=== PATIENT | male | born 1955 | race African-American/Black ===

== ENCOUNTER 2017-12-16 09:09 | Emergency (ER) | payer MEDICARE, OTHER ==
[~2017-12-16] VITALS: Ht 175.3 cm; Wt 95.0 kg
[~2017-12-16 09:09] MED LIST: METH10TA2 PO; METH40TA12 PO; PHEN30TA42
[2017-12-16] MEDS ORDERED: IBUPROFEN 800MG TABLET PO ONE (10:15)
[2017-12-16 11:15] VITALS: BP 130/84
== END 2017-12-16 11:26 | disposition home or self-care (01) ==
LOC: ER 09:42
DX: S20.212A Contusion of left front wall of thorax, initial encounter (principal); K21.9 Gastro-esophageal reflux disease without esophagitis; F17.200 Nicotine dependence, unspecified, uncomplicated; W20.8XXA Other cause of strike by thrown, projected or falling object, initial encounter; Y93.89 Activity, other specified; Y92.89 Other specified places as the place of occurrence of the external cause; Y99.8 Other external cause status
CPT/HCPCS: 71100; 93005; 99284

== ENCOUNTER 2018-02-05 13:30 | Emergency (ER) | payer MEDICARE, OTHER ==
[~2018-02-05] VITALS: Ht 175.3 cm; Wt 92.0 kg
[2018-02-05] MEDS ORDERED: KETOROLAC 60MG/2ML VIAL IM ONE (17:45)
[2018-02-05 19:40] VITALS: BP 111/62
== END 2018-02-05 19:43 | disposition home or self-care (01) ==
LOC: ER 15:38
DX: M79.661 Pain in right lower leg (principal); K21.9 Gastro-esophageal reflux disease without esophagitis; G40.909 Epilepsy, unspecified, not intractable, without status epilepticus; F17.200 Nicotine dependence, unspecified, uncomplicated; Z85.79 Personal history of other malignant neoplasms of lymphoid, hematopoietic and related tissues
CPT/HCPCS: 73590; 93971; 96372; 99284; J1885

== ENCOUNTER 2018-04-23 08:20 | Day surgery (SDC) | payer MEDICARE, OTHER ==
[~2018-04-23] VITALS: Ht 175.3 cm; Wt 92.5 kg
[~2018-04-23 08:20] MED LIST changes: +FERR325T6 MT; +GABA-529 MT; +GABA-531 MT; +IBUP-2029 MT; +LEVE500T19 MT; -METH10TA2 PO; -METH40TA12 PO; +PANT20TA3 MT; -PHEN30TA42
[2018-04-23] MEDS ORDERED: SODIUM CHLORIDE 0.9% 1,000 ML IV SCH (09:20)
[2018-04-23 09:31] LABS: MEAN CORPUSCULAR HEMOGLOBIN 31.1 pg (28.0-32.0); MEAN PLATELET VOLUME 6.4 fl (7.4-10.4); PLATELET 88 x1000/uL (130-400); RED BLOOD CELL COUNT 2.26 mill/uL (4.7-6.1); RED CELL DISTRIBUTION WIDTH 18.9 % (11.6-14.6)
[2018-04-23 09:35] LABS: HEMATOCRIT. 20.3 % (42.0-52.0)
[2018-04-23] MEDS ORDERED: FENTANYL CITRATE/PF 50MCG/ML 2ML VIAL ONE (09:43)
[2018-04-23] MEDS ORDERED: ONDANSETRON HCL 4MG/2ML VIAL ONE (09:45)
[2018-04-23] MEDS ORDERED: ONDANSETRON HCL 4MG/2ML VIAL IV ONE (10:30)
[2018-04-23 10:38] LABS: PLATELET ESTIMATE SLIGHTLY DECREASED
[2018-04-23] MEDS ORDERED: PROT40 PO (11:20)
[2018-04-23] MEDS ORDERED: MULT1TAB76 PO (11:20)
[2018-04-23] MEDS ORDERED: CYAN10003 PO (11:20)
== END 2018-04-23 12:30 | disposition home or self-care (01) ==
LOC: OR 08:20
PROVIDERS: ATTEND Pathology Anatomic Pathology & Clinical Pathology
DX: C90.00 Multiple myeloma not having achieved remission (principal); J44.9 Chronic obstructive pulmonary disease, unspecified; N18.2 Chronic kidney disease, stage 2 (mild); D50.9 Iron deficiency anemia, unspecified; R06.02 Shortness of breath; I51.7 Cardiomegaly; F17.210 Nicotine dependence, cigarettes, uncomplicated; M51.26 Other intervertebral disc displacement, lumbar region; G89.29 Other chronic pain; B19.20 Unspecified viral hepatitis C without hepatic coma; K21.9 Gastro-esophageal reflux disease without esophagitis; Z79.1 Long term (current) use of non-steroidal anti-inflammatories (NSAID); Z79.899 Other long term (current) drug therapy; Z86.19 Personal history of other infectious and parasitic diseases
CPT/HCPCS: 36415; 38220; 85025; 85060; 85097; 88313; J2405; J3010; J7030